=== PATIENT | male | born 1990 | race Caucasian/White ===

== ENCOUNTER 2019-07-29 14:19 | Emergency (ER) | payer MEDICAID ==
[~2019-07-29] VITALS: Ht 182.9 cm; Wt 81.6 kg
--- NOTE | 2019-07-29 16:33 | NUR ---
Pt resting with NAD noted, x-ray results still pending.
[2019-07-29] MEDS ORDERED: MAGNESIUM CITRATE 296 ML BOTTLE PO ONE (17:00)
[2019-07-29] MEDS ORDERED: MAGNESIUM CITRATE 296 ML BOTTLE ONE (17:12)
[2019-07-29] MEDS ORDERED: GOLYTELY 4000 ML BOTTLE PO ONE (17:18)
--- NOTE | 2019-07-29 17:28 | NUR ---
Patient discharged to home in stable conditon. Written and verbal after care instructions given. Patient verbalizes understanding of instructions.
== END 2019-07-29 17:30 | disposition home or self-care (01) ==
LOC: ER 14:19
DX: K59.00 Constipation, unspecified (principal); R11.0 Nausea; Z90.89 Acquired absence of other organs
CPT/HCPCS: A4663